=== PATIENT | male | born 1995 | race Caucasian/White ===

== ENCOUNTER 2020-04-13 18:48 | Observation (INO) | payer OTHER, SELFPAY ==
[2020-04-13] VITALS (8 sets, daily range): BP systolic 130–174; BP diastolic 76–99; PULSE 94–109; RESP 18–30; TEMP 36.6–38.6; O2SAT 94–100
--- NOTE | ~2020-04-13 | XR_ITS ---
EXAMINATION: XR chest 1V portable DATE: 04/13/2020 19:38 INDICATION: Shortness of breath, cough, fatigue, weakness and intermittent chest pain. TECHNIQUE: frontal view of the chest was obtained. COMPARISON: None FINDINGS: The lungs are clear with no focal airspace opacities, pulmonary edema, pleural effusion or pneumothor ax. The cardiomediastinal silhouette is normal. Visualized bones and soft tissues are unremarkable. IMPRESSION: 1. No acute cardiopulmonary disease. Reviewed, dictated and finalized at location H. ER/FABRICATOR
--- NOTE | 2020-04-13 18:55 | ECG_ITS ---
Measurements Intervals [place] Rate: 84 P: 45 SC: 153 QRS: 0 QRSD: 90 T: 69 QT: 329 QTc: 389 Interpretive Statements SINUS RHYTHM BORDERLINE R WAVE PROGRESSION, ANTERIOR LEADS BASELINE ARTIFACT- I, II, III, AVR BORDERLINE ECG Electronically Signed On 04-14-2020 8:37:21 [employer]S ASSOCI[employer] by Gm Guallpa D.O.
--- NOTE | 2020-04-13 19:04 | ED.SOB ---
HPI - SOB/Dyspnea General Chief Complaint: Shortness of Breath/Dyspnea Stated Complaint: sob Time Seen by Provider: 04/13/20 19:04 Source: patient Mode of arrival: ambulatory Limitations: no limitations History of Present Illness HPI Narrative: Patient is a 24 yo obese male who presents for evaluation of dyspnea. Patient started feeling unwell yesterday, with cough, rhinorrhea. Pt with fever, myalgias and diarrhea developing today with increasing dyspnea throughout yesterday night into today. Pt states he works at [employer] where numerous co workers are positive for COVID. Patient was seen at [facility], was is in the waiting room for over 4 hours, did have a Covid swab taken, but ended up leaving prior to being evaluated due to the long wait time. Patient is denying any chest pain. He is only endorsing shortness of breath currently. Related Data Home Medications Medication Instructions Recorded Confirmed fluticasone propionate INTRANASAL 04/13/20 montelukast mg 04/13/20 Allergies Allergy/AdvReac Type Severity Reaction Status Date / Time No Known Allergies Allergy Verified 04/13/20 21:39 Review of Systems Review of Systems: Narrative: CONSTITUTIONAL: Reports fever and chills EYES: Denies visual changes, redness, or discharge. ENT: Reports rhinorrhea, congestion, sore throat CARDIOVASCULAR: Denies chest pain, palpitations, or edema. RESPIRATORY: Reports cough and shortness of breath GASTROINTESTINAL: Denies abdominal pain, reports nausea and diarrhea GENITOURINARY: Denies dysuria or hematuria. SKIN: Denies rash or itching. MUSCULOSKELETAL: Denies back pain, joint pain, reports myalgias NEUROLOGIC: Denies headache, numbness, or weakness. [facility] Past Medical History Medical History Obesity Surgical History Surgical History (Updated 04/13/20 @ 19:35 by Kiarra Burks MD) H/O wisdom tooth extraction Social History Social History (Updated 04/13/20 @ 19:35 by Kiarra Burks MD) Smoking status: Never smoker Substance use: never Living arrangements: with family Gender identity (if verbalized by the patient): Male Exam Narrative: Exam Narrative: GENERAL: Awake, alert, obese male HEAD: Normocephalic, atraumatic. EYES: PERRLA and EOMI. ENT: Nares clear, no rhinorrhea or epistaxis. Mucous membranes moist. NECK: Supple. CHEST: Mild respiratory distress, tachypneic, breathing is slightly labored HEART: Tachycardic rate, sinus rhythm ABDOMEN:Non distended, non tender EXTREMITIES: Normal range of motion. No edema. SKIN: Warm, dry, no rash. NEURO:No focal deficits. Alert and oriented x3 Course Vital Signs Vital signs: Vital Signs Temperature 36.6 C 04/13/20 18:51 Pulse Rate 99 04/13/20 18:51 Respiratory Rate 25 H 04/13/20 18:51 Blood Pressure 130/76 04/13/20 18:51 Pulse Oximetry 96 04/13/20 18:51 Temperature 38.6 C H 04/13/20 21:43 Pulse Rate 106 H 04/13/20 22:07 Respiratory Rate 24 H 04/13/20 22:07 Blood Pressure 174/99 H 04/13/20 21:43 Pulse Oximetry 97 04/13/20 21:47 MDM - SOB/Dyspnea MDM Narrative Medical decision making narrative: Patient presented for evaluation of viral type symptoms and shortness of breath. Patient denied any chest pain. The time of assessment, patient has moderate respiratory distress, increased work of breathing, tachycardia, tachypnea. When talking with me, oxygen saturations are decreasing to around 90% on room air. IV access obtained and labs were drawn. I did place the patient on 2 L oxygen via nasal cannula which did seem to improve his work of breathing. Patient does have a mild leukocytosis. No elevation in D-dimer. No transaminitis. No elevation in troponin. At this point, patient will be Covid swabbed, kept on droplet precautions given the likelihood that this probably is Covid. Considered other etiologies, however patient without any chest pain, doubt
--- NOTE | 2020-04-13 19:05 | PC.NURSE ---
REPORT TO PORFIRIO JOHNSON AT THIS TIME SHE HAS ASSUMED PT CARE.
[2020-04-13 19:13] LABS: Basophils Percent Auto 0.2 % (0.2-1.2); Eosinophils Absolute Auto 0.2 K/mm3 (0-0.3); Eosinophils Percent Auto 1.8 % (0-4.4); Hematocrit 42.7 % (42.0-52.0); Hemoglobin 14.1 g/dL (14.0-18.0); Immature Granulocyte Absolute 0.04 K/mm3 (0.00-0.031); Immature Granulocyte Percent A 0.3 % (0-0.5); Lymphocytes Absolute Auto 1.15 K/mm3 (0.9-3.2); Lymphocytes Percent Auto 9.4 % (18.3-44.2); Mean Corpuscular Hemoglobin 27.5 pg (26-34); Mean Corpuscular Volume 83.2 fl (80-100); Mean Platelet Volume 9.2 fl (7.4-10.4); Monocytes Absolute Auto 0.7 K/mm3 (0.1-0.6); Monocytes Percent Auto 5.9 % (2.6-8.5); Neutrophils Absolute Auto 10.1 K/mm3 (1.3-6.7); Neutrophils Percent Auto 82.4 % (45.5-73.1); Platelet Count Result 341 k/mm3 (150-375); Red Blood Count 5.13 M/mm3 (4.6-6.20); Red Cell Distribution Width 13.6 % (11.5-14.5); White Blood Count 12.3 K/mm3 (4.5-10.0)
[2020-04-13 19:24] LABS: Alanine Aminotransferase 28 U/L (4-50); Albumin Level 4.4 g/dL (3.5-5.1); Alkaline Phosphatase 67 U/L (38-126); Anion Gap 7 mmol/L (8-16); Aspartate Amino Transferase 30 U/L (17-59); Bilirubin,Total 0.4 mg/dL (0.2-1.3); Blood Urea Nitrogen 12 mg/dL (9-20); Calcium 9.1 mg/dL (8.4-10.2); Carbon Dioxide 32 mmol/L (22-30); Chloride 103 mmol/L (98-107); Estimated CRCL calculation 134 ml/min; Estimated Glomerular Filt Rate > 60; Glucose 131 mg/dL (75-110); Potassium 3.9 mmol/L (3.4-5.0); Sodium 142 mmol/L (137-145)
--- NOTE | 2020-04-13 20:30 | PC.NURSE ---
Pt walked in room with pulse oximetry. O2 saturation remained at 93% on room air but pt was becoming increasingly short of breath with audible expiratory wheezes. notified.
[2020-04-13] MEDS: ACETAMINOPHEN 500 MG TABLET 1000 MG PO (21:40)
[2020-04-13] MEDS: ALBUTEROL SULFATE NEB 2.5 MG/0.5 ML INH 5 MG INHALATION (21:54)
[2020-04-13] MEDS: IPRATROPIUM BR 0.02% INH SOLN 0.5 MG/2.5 ML VIAL INHALATION (21:55)
[2020-04-13 22:01] LABS: Alveolar/Arterial O2 Gradient 70.5 mmHg; Base Excess ABG 1.3 mEq/l (+/-2.0); Carboxyhemoglobin 0.9 % THb (0-2.0); Device NASAL CANNULA; Fractional Inspired Oxygen 28 %; HCO3 ABG 25.6 mEq/l (22.0-26.0); Methemoglobin ABG 0.4 %THb (0-1.5); Modified Allen's Test Pass; Oxygen Content ABG 20.2 %vol (16.0-22.0); Oxygen Saturation ABG 96.5 % (95.0-100.0); Oxyhemoglobin 95.4 % THb (90.0-100.0); PCO2 ABG 39.3 mmHg (35.0-45.0); PO2 ABG 82.8 mmHg (80.0-100.0); PO2 FiO2 Ratio Arterial Blood 2.96 %; Reduced Hemoglobin 3.3 %THb (0-5.0); Site Drawn RIGHT RADIAL; pH ABG 7.431 (7.350-7.450)
[2020-04-13 22:10] LABS: Prothrombin Time 13.3 Seconds (11.1-14.7)
[2020-04-13 22:11] LABS: Partial Thromboplastin Time 30.8 SECONDS (22.3-36.8)
[2020-04-13 22:16] LABS: Troponin I < 0.012 ng/mL (0.000-0.034)
--- NOTE | 2020-04-13 22:53 | PM.IMHP ---
H&P: HPI History of Present Illness Date/Time: 04/13/20 22:53 Chief complaint: sob Narrative: This is a pleasant 24 year old Obese male who was previously known to be healthy and presented to the hospital with a complaint of about 3 weeks of increasing worsening upper respiratory symptoms and shortness of breath. He describes that about 1 month ago he started to have increased congestion and slowly began to develop shortness of breath. He has been tested for COVID multiple times and his last test before today was two weeks ago and was negative. Yesterday he began to have a hacking cough that is poorly productive, nausea, body aches, vomiting and diarrhea. Overnight the patient had a hard time sleeping and could not tolerate sleeping flat. Today the patient developed a fever while in the ER. He was found to be septic in the ER with tachycardia, tachypnea, and fever. He was treated with steroids and bronchodilators and states that he feels a little better at this time. He is denying any chest pain, palpitations, abd pain, dysuria, hematuria, or rectal bleeding. No LE swelling. He has been saturating in the low 90s and was placed on oxygen secondary to increased work of breathing and dyspnea with any movement. Review of Systems Review of Systems: All systems reviewed & are unremarkable except as noted in HPI and below PMFSH Past Medical History Medical History Obesity Surgical History Surgical History H/O wisdom tooth extraction Social History Social History Smoking status: Never smoker Substance use: never Living arrangements: with family Gender identity (if verbalized by the patient): Male Comments Family medical history is unknown as the patient is adopted. Meds Home Medications and Allergies Home Medications Medication Instructions Recorded Confirmed Type fluticasone propionate INTRANASAL 04/13/20 History montelukast mg 04/13/20 History Allergies Allergy/AdvReac Type Severity Reaction Status Date / Time No Known Allergies Allergy Verified 04/13/20 21:39 Vital Signs Vital Signs - 24 hr 04/13/20 18:51 04/13/20 18:55 04/13/20 20:00 Temperature 36.6 C Pulse Rate 99 102 H 94 Respiratory Rate 25 H 22 H Blood Pressure 130/76 162/92 H Pulse Oximetry 96 94 100 04/13/20 20:05 04/13/20 21:43 04/13/20 21:47 Temperature 38.6 C H Pulse Rate 109 H Respiratory Rate 18 Blood Pressure 174/99 H Pulse Oximetry 98 95 97 04/13/20 21:55 04/13/20 22:07 Temperature Pulse Rate 105 H 106 H Respiratory Rate 30 H 24 H Blood Pressure Pulse Oximetry Exam Const: General: cooperative, alert, awake, ill appearing and other (diaphoretic++ ) Nutritional Appearance: obese morbidly obese Orientation/consciousness: patient oriented x3 HENMT: Head: normal to inspection General nose exam: Normal external nose present Face and sinus: normal facial exam Mouth: Yes Normal oral and palatal mucosa present and Yes oropharynx normal Eyes: Pupils: Equal, round and reactive pupils present EOM: EOMs intact bilaterally Neck: Neck: supple and no JVD Thyroid: thyroid normal Lymphatic: lymphadenopathy not noted Resp: Effort & Inspection: tachypneic and uses accessory muscles Auscultation: crackles (b/l lower lung maldonado++ ), rhonchi and no wheezes Cardio: Rate: tachycardic Rhythm: regular rhythm Heart sounds: no murmurs GI: Inspection: normal to inspection Auscultation: normal bowel sounds Skin: General skin exam: normal color and no rashes or lesions noted Neuro: General: patient oriented x3 Cranial nerves: Yes CN's II-XII intact bilaterally and Yes Equal, round and reactive pupils present Speech: normal speech Motor exam (neuro): 5/5 motor strength present throughout Sensory Exam: normal sensation Extrem: Ge
[2020-04-14] VITALS (7 sets, daily range): BP systolic 137–159; BP diastolic 60–89; PULSE 89–112; RESP 16–20; TEMP 36.1–36.9; O2SAT 93–98; BMI 51.2
--- NOTE | 2020-04-14 02:45 | ADMGEN ---
This patient, Gabriel Verduzco, was admitted to 3 Med Surg Room 312-01. Patient/family oriented to hospital policies and general routines including ID bracelet, bed and alarms, visiting hours, pain management, procedures, bathroom and other care routines, personal items, smoking policy, room service/diet, and visiting hours. Information on how to activate the Rapid Response Team has been discussed. Patient/Family are encouraged to report perceived risks to care and to ask questions if they do not understand what they are told or what they should do.
[2020-04-14] MEDS: DEXAMETHASONE SOD PHOS INJ 4 MG/ML VIAL 6 MG IV PUSH (08:25)
[2020-04-14] MEDS: ENOXAPARIN 40 MG/0.4 ML SYRINGE SUB-Q (08:25)
[2020-04-14 08:43] LABS: Basophils Percent Auto 0.1 % (0.2-1.2); Eosinophils Percent Auto 0.1 % (0-4.4); Hematocrit 41.3 % (42.0-52.0); Hemoglobin 13.5 g/dL (14.0-18.0); Immature Granulocyte Absolute 0.05 K/mm3 (0.00-0.031); Immature Granulocyte Percent A 0.4 % (0-0.5); Lymphocytes Absolute Auto 0.66 K/mm3 (0.9-3.2); Lymphocytes Percent Auto 5.7 % (18.3-44.2); Mean Corpuscular HGB Conc 32.7 g/dl (32-36); Mean Corpuscular Hemoglobin 27.4 pg (26-34); Mean Corpuscular Volume 83.8 fl (80-100); Mean Platelet Volume 9.7 fl (7.4-10.4); Monocytes Absolute Auto 0.5 K/mm3 (0.1-0.6); Neutrophils Absolute Auto 10.3 K/mm3 (1.3-6.7); Neutrophils Percent Auto 89.7 % (45.5-73.1); Platelet Count Result 355 k/mm3 (150-375); Red Blood Count 4.93 M/mm3 (4.6-6.20); Red Cell Distribution Width 13.9 % (11.5-14.5); White Blood Count 11.5 K/mm3 (4.5-10.0)
[2020-04-14 08:56] LABS: Alanine Aminotransferase 27 U/L (4-50); Albumin Level 4.2 g/dL (3.5-5.1); Alkaline Phosphatase 61 U/L (38-126); Anion Gap 9 mmol/L (8-16); Aspartate Amino Transferase 30 U/L (17-59); Bilirubin,Total 0.4 mg/dL (0.2-1.3); Blood Urea Nitrogen 18 mg/dL (9-20); CRP 4.3 mg/dL (<1.0); Calcium 9.4 mg/dL (8.4-10.2); Carbon Dioxide 29 mmol/L (22-30); Chloride 102 mmol/L (98-107); Estimated CRCL calculation 148 ml/min; Estimated Glomerular Filt Rate > 60; Glucose 149 mg/dL (75-110); Lactate Dehydrogenase 538 U/L (313-618); Magnesium 2.4 mg/dL (1.6-2.3); Potassium 3.9 mmol/L (3.4-5.0); Sodium 140 mmol/L (137-145)
[2020-04-14] MEDS: LEVALBUTEROL HFA (*SP) 15 GM INHALER 2 PUFF INHALATION (09:55)
[2020-04-14 13:33] LABS: Influenza Control Positive
--- NOTE | 2020-04-14 13:46 | PM.DS ---
DS: Admitting Diagnosis Admitting Diagnosis Admitting Diagnosis: Respiratory failure, viral infection, COVID PUI DS: Discharge Diagnosis Discharge Diagnosis (1) Acute respiratory failure: Qualifiers: Respiratory failure complication: unspecified whether with hypoxia or hypercapnia Qualified Code(s): J96.00 - Acute respiratory failure, unspecified whether with hypoxia or hypercapnia Code(s): J96.00 - Acute respiratory failure, unspecified whether with hypoxia or hypercapnia Status: Acute Assessment and Plan: Patient is feeling much better this afternoon. He was in rogelio respiratory failure with elevated respiratory rate in the mid 20s - 30s upon admission, however, this appears to have resolved with him breathing fine on RA with O2 sats in mid 90s on RA. Initially, appeared to be possible viral respiratory infection based on his clinical symptoms, labs, however COVID and Flu swab negative and CXR was unremarkable. He feels breathing treatment in ER provided significant relief. He is comfortable going home for further supportive care. Patient could very well have underlying lung condition that is undiagnosed such as asthma or COPD Given significant improvement in his respiratory status overnight, will discharge home today with prompt follow up with PCP Recommended doing spot checks with pulse oximeter at home Will discharge with albuterol inhaler. Recommend Tylenol for fevers and mucinex for cough as needed F/u with PCP once established Instructed him to return to the ER if saturation were consistently in low 90s at home Given Negative COVID test, will defer quarantine to PCP (2) Suspected 2019 novel coronavirus infection: Code(s): Z20.828 - Contact with and (suspected) exposure to other viral communicable diseases Status: Ruled-out Assessment and Plan: The patient swabbed for Coronavirus in the ER 04/13; negative this afternoon; FLU negative as well. Possible underlying undiagnosed lung condition such asthma or COPD. He received 2 doses of IV dexamethasone with significant improvement and now on RA without any respiratory distress. CXR unremarkable Continue supportive care as described above F/u with PCP (3) Sepsis: Qualifiers: Acute respiratory failure type: unspecified Sepsis acute organ dysfunction status: with acute organ dysfunction Sepsis type: sepsis due to unspecified organism Severe sepsis acute organ dysfunction type: acute respiratory failure Severe sepsis shock status: without septic shock Qualified Code(s): A41.9 - Sepsis, unspecified organism; R65.20 - Severe sepsis without septic shock; J96.00 - Acute respiratory failure, unspecified whether with hypoxia or hypercapnia Code(s): A41.9 - Sepsis, unspecified organism Status: Ruled-out Assessment and Plan: With fever (resolved), leukocytosis (improved to 11.5k this morning), tachycardia (resolved), and tachypnea (resolved). source of sepsis initially appeared to be pulmonary however, covid and flu negative and CXR negative. F/u with PCP (4) Leukocytosis: Qualifiers: Leukocytosis type: unspecified Qualified Code(s): D72.829 - Elevated white blood cell count, unspecified Code(s): D72.829 - Elevated white blood cell count, unspecified Status: Acute Assessment and Plan: likely secondary to viral respiratory illness. Improved since admissin F/u with PCP (5) Morbid obesity: Code(s): E66.01 - Morbid (severe) obesity due to excess calories Status: Chronic Assessment and Plan: Healthy lifestyle changes. (6) Elevated blood pressure reading: Code(s): R03.0 - Elevated blood-pressure reading, without diagnosis of hypertension Status: Acute
[2020-04-14 14:03] LABS: SARS-CoV-2 RNA PCR Negative
== END 2020-04-14 15:58 | disposition home or self-care (01) ==
LOC: ANHED 22:25 → ANH3MEDSUR 04-14 02:12
PROVIDERS: Emergency Medicine; Physician Assistant; Admitting Provider Family Medicine; Emergency Provider Emergency Medicine; Visit Provider Family Medicine
DX: J96.00 Acute respiratory failure, unspecified whether with hypoxia or hypercapnia (principal); Z20.828 Contact with and (suspected) exposure to other viral communicable diseases; D72.829 Elevated white blood cell count, unspecified; E66.01 Morbid (severe) obesity due to excess calories; R03.0 Elevated blood-pressure reading, without diagnosis of hypertension; Z68.43 Body mass index [BMI] 50.0-59.9, adult
CPT/HCPCS: 36415; 36600; 71045; 80053; 82375; 82728; 82805; 83050; 83615; 83735; 84484; 85025; 85380; 85610; 85730; 86140; 87635; 87804; 93005; 94640; 96372; 96374; 99291; A9270; C9803; G0378; J1100; J1650; U0003